=== PATIENT | male | born 1975 | race Hispanic/Latino ===

== ENCOUNTER 2022-09-14 11:20 | Emergency (ER) | payer SELFPAY ==
[~2022-09-14] VITALS: Ht 177.8 cm; Wt 99.8 kg
[2022-09-14] MEDS ORDERED: FAMOTIDINE 20 MG/2 ML VIAL IV STA (12:35)
[2022-09-14] MEDS ORDERED: KETOROLAC TROMETHAMINE 30 MG/ML VIAL IV STA (12:35)
[2022-09-14] MEDS ORDERED: IOPAMIDOL 370 MG/ML 100 ML INFUS..BTL INJ ONE (12:45)
[2022-09-14] MEDS ORDERED: SODIUM CHLORIDE 0.9% 1000ML 1,000 ML IV SCH (12:45)
[2022-09-14] MEDS ORDERED: KETOROLAC TROMETHAMINE 30 MG/ML VIAL ONE (12:57)
[2022-09-14] MEDS ORDERED: FAMOTIDINE 20 MG/2 ML VIAL IV ONE (12:57)
[2022-09-14] MEDS ORDERED: SODIUM CHLORIDE 0.9% 1000ML 1,000 ML ONE (12:57)
[2022-09-14 14:20] VITALS: O2SAT 98
[2022-09-14] MEDS ORDERED: ONDANSETRON ODT4 MG PO (14:32)
[2022-09-14] MEDS ORDERED: FLOMAX0.4 MG PO (14:32)
[2022-09-14] MEDS ORDERED: KETOROLAC TROME10 MG PO (14:34)
[2022-09-14] MEDS ORDERED: ULTRAM 50MG50 MG PO (14:36)
== END 2022-09-14 14:53 | disposition home or self-care (01) ==
LOC: EDBD 11:20 → FSED 11:30
DX: R10.30 Lower abdominal pain, unspecified (principal); N20.2 Calculus of kidney with calculus of ureter; K57.90 Diverticulosis of intestine, part unspecified, without perforation or abscess without bleeding; I10 Essential (primary) hypertension; E03.9 Hypothyroidism, unspecified; F17.210 Nicotine dependence, cigarettes, uncomplicated
CPT/HCPCS: 74177; 80048; 80076; 81003; 82270; 85025; 96374; 96376; 99284; J1885; J7030; Q9967

== ENCOUNTER 2024-02-10 15:33 | Emergency (ER) | payer OTHER ==
[~2024-02-10] VITALS: Ht 177.8 cm; Wt 99.8 kg
[~2024-02-10 15:33] MED LIST: CEPHALEXIN500 MG PO; DICYCLOMINE HCL20 MG PO; FLOMAX0.4 MG PO; HYDROXYZINE PAM25 MG PO; KETOROLAC TROME10 MG PO; ONDANSETRON ODT4 MG PO; ULTRAM 50MG50 MG PO
[2024-02-10 15:37] VITALS: PULSE 88; RESP 16; TEMP 98; O2SAT 100
[2024-02-10] MEDS ORDERED: AMOX TR-K CLV1 EAC2 PO (15:43)
[2024-02-10] MEDS ORDERED: ULTRAM 50MG50 MG PO (15:43)
== END 2024-02-10 16:13 | disposition home or self-care (01) ==
LOC: ER 15:39
DX: K08.89 Other specified disorders of teeth and supporting structures (principal); K02.9 Dental caries, unspecified; I10 Essential (primary) hypertension; E03.9 Hypothyroidism, unspecified; F41.9 Anxiety disorder, unspecified; F31.9 Bipolar disorder, unspecified; Z87.442 Personal history of urinary calculi
CPT/HCPCS: 99282